=== PATIENT | female | born 1995 ===

== ENCOUNTER 2018-07-24 13:10 | Emergency (ER) | payer OTHER ==
[2018-07-24 13:17] VITALS: PULSE 96; O2SAT 99
[2018-07-24] MEDS ORDERED: Albuterol-Ipratrop 3 mg / 0.5 (3 ml) UD INH STA ×2 (13:28)
--- NOTE | 2018-07-24 13:33 | C.PDOC ---
History Of Present Illness 22-year-old female, whose PMHx includes asthma, presents to the ED for evaluation of cough and wheezing which began two months ago, intermittantly . Patient is currently around 19 weeks and is . She denies fever, chills. pt poo rhistorain. states ashtma triggered by chemicals at work today. usually triggered by detergants. in er in nad. speaking full sentences in nad. this episode x 2 days Time Seen by Provider: 07/24/18 13:17 Chief Complaint (Nursing): Shortness Of Breath History Per: Patient History/Exam Limitations: other (poor historian ) Onset/Duration Of Symptoms: Other (two months ) Associated Symptoms: denies: Fever, Chills Additional History Per: Patient Past Medical History Reviewed: Historical Data, Nursing Documentation, Vital Signs Vital Signs: Last Vital Signs Temp 98.3 F 07/24/18 13:15 Pulse 96 H 07/24/18 13:15 Resp 24 07/24/18 13:15 BP 106/66 07/24/18 13:15 Pulse Ox 99 07/24/18 13:15 Primary Care Provider: Nitin Lewis Surg - Medical History PMH: Asthma Surgical History: No Surg Hx Family History: States: Unknown Family Hx - Social History Hx Alcohol Use: No Hx Substance Use: No Review Of Systems Constitutional: Negative for: Fever, Chills Respiratory: Positive for: Cough, Wheezing Physical Exam - Physical Exam Appears: Non-toxic, No Acute Distress Skin: Normal Color, Warm, Dry Head: Atraumatic, Normacephalic Eye(s): bilateral: Normal Inspection Oral Mucosa: Moist Neck: Supple Chest: Symmetrical, No Deformity, No Tenderness Cardiovascular: Rhythm Regular, No Murmur Respiratory: Decreased Breath Sounds (bilaterally ), No Rales, No Rhonchi, Wheezing (bilaterally ) Gastrointestinal/Abdominal: Soft, No Tenderness, No Guarding, No Rebound Extremity: Normal ROM, Capillary Refill (less than 2 seconds ) Neurological/Psych: Oriented x3, Normal Speech, Normal Cognition ED Course And Treatment O2 Sat by Pulse Oximetry: 99 (on RA) Pulse Ox Interpretation: Normal Medical Decision Making Medical Decision Making: Progress: Albuterol INH and Prednisone PO given. mild excacebation. nebs steriods given. observed 2 hours pt sleeping innad. stable for dc. info obtain via trnaltor. Disposition - Disposition Referrals: [facility] [Outside] [facility] [Outside] Disposition: HOME/ ROUTINE Disposition Time: 14:47 Condition: STABLE Additional Instructions: follow up with your doctor/clinic. return to er with worsening. Prescriptions: Albuterol 0.083% [Albuterol 0.083% Inhal Magalys (2.5 mg/3 ml) UD] 2.5 mg IH Q4 PRN #20 neb PRN Reason: Wheezing Prednisone 50 mg PO DAILY #5 tablet Instructions: Asthma in Adults, Asthma and Forms: [employer] [facility] (Yakut) Print Language: JORDANIAN - Clinical Impression Clinical Impression: Asthma - Scribe Statement The provider has reviewed the documentation as recorded by the Scribe (Afua Nelson) Provider Attestation: All medical record entries made by the Scribe were at my direction and personally dictated by me. I have reviewed the chart and agree that the record accurately reflects my personal performance of the history, physical exam, medical decision making, and the department course for this patient. I have also personally directed, reviewed, and agree with the discharge instructions and disposition.
[2018-07-24] MEDS ORDERED: Albuterol-Ipratrop 3 mg / 0.5 (3 ml) UD ONE (14:08)
[2018-07-24 14:32] VITALS: BP 100/62; RESP 22; TEMP 98
== END 2018-07-24 14:54 | disposition home or self-care (01) ==
LOC: C.ER 13:10
DX: O26.892 Other specified pregnancy related conditions, second trimester (principal); J45.909 Unspecified asthma, uncomplicated; Z3A.19 19 weeks gestation of pregnancy